=== PATIENT | female | born 1995 | race Two or more races ===

== ENCOUNTER → 2019-11-17 | Emergency (ER) | payer MEDICAID ==
[~2019-11-17] VITALS: Ht 180.3 cm; Wt 91.6 kg
[2019-11-17 13:20] VITALS: BP 127/85
== END | disposition home or self-care (01) ==
LOC: ER 13:04
DX: S63.502A Unspecified sprain of left wrist, initial encounter (principal); W01.0XXA Fall on same level from slipping, tripping and stumbling without subsequent striking against object, initial encounter; Y93.01 Activity, walking, marching and hiking; Y92.89 Other specified places as the place of occurrence of the external cause; Y99.8 Other external cause status
CPT/HCPCS: 73110; 81025

== ENCOUNTER 2020-02-16 13:54 | Emergency (ER) | payer MEDICAID ==
[~2020-02-16] VITALS: Ht 154.9 cm; Wt 93.4 kg
[2020-02-16 14:16] VITALS: BP 136/79
== END 2020-02-16 14:31 | disposition left against medical advice (07) ==
LOC: ER 13:54
DX: O20.8 Other hemorrhage in early pregnancy (principal); Z3A.01 Less than 8 weeks gestation of pregnancy; Z53.21 Procedure and treatment not carried out due to patient leaving prior to being seen by health care provider

== ENCOUNTER 2022-01-05 12:41 | Emergency (ER) | payer MEDICAID ==
[~2022-01-05] VITALS: Ht 180.3 cm; Wt 95.3 kg
[2022-01-05 13:08] VITALS: BP 146/77
[2022-01-05 13:51] LABS: Basophils # (auto) 0 10 ^3/uL (0-0.2); Basophils % (auto) 0.1 % (0.0-2.0); Eosinophils # (auto) 0.1 10 ^3/uL (0-0.8); Eosinophils % (auto) 0.5 % (0.0-7.0); Hematocrit 40.5 % (36.0-46.0); Hemoglobin 13.6 g/dL (12.2-16.2); Lymphocytes # (auto) 2.4 10 ^3/uL (0.4-5.4); Lymphocytes % (auto) 19.9 % (10.0-50.0); Mean Corpuscular Hemoglobin 28.9 pg (28.0-32.0); Mean Corpuscular Hgb Conc. 33.6 g/dL (32.0-36.0); Mean Corpuscular Volume 86.1 fL (80.0-100.0); Monocytes # (auto) 0.8 10 ^3/uL (0-1.3); Monocytes % (auto) 6.4 % (0.0-12.0); Neutrophils # (auto) 8.7 10 ^3/uL (1.6-8.6); Neutrophils % (auto) 73.1 % (37.0-80.0); Red Cell Distribution Width 13.8 % (11.8-14.3); White Blood Cell 11.9 10^3/uL (4.4-10.8)
[2022-01-05 14:24] LABS: Albumin 3.7 g/dL (3.4-5.0); Bilirubin, Total 0.2 mg/dL (0.2-1.0); Calcium 9.2 mg/dL (8.5-10.1); Potassium 4.1 mmol/L (3.5-5.1); Total Protein 8.2 g/dL (6.4-8.2)
[2022-01-05 17:51] LABS: Urine WBC None Seen /hpf (0 - 5)
[2022-01-05 18:06] LABS: Urine Bacteria FEW /hpf (None Seen); Urine Blood 3+ /uL (Negative); Urine Budding Yeast FEW /hpf (None Seen); Urine Specific Gravity 1.012 (1.001-1.035)
[2022-01-05] MEDS ORDERED: CEFP200T15 PO (18:25)
== END 2022-01-05 18:45 | disposition home or self-care (01) ==
LOC: ER 12:41
DX: O20.0 Threatened abortion (principal); O23.92 Unspecified genitourinary tract infection in pregnancy, second trimester; R82.71 Bacteriuria; Z3A.15 15 weeks gestation of pregnancy
CPT/HCPCS: 36415; 76805; 80053; 81001; 84702; 85025; 86850; 86900; 86901